=== PATIENT | female | born 1945 ===

== ENCOUNTER 2017-10-25 18:03 | Emergency (ER) | payer OTHER, MEDICARE ==
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
[2017-10-25 19:09] LABS: BASO % 0.5 % (0.0-2.0); EOS # 0.2 K/uL (0.0-0.7); EOS % 2.9 % (0.0-4.0); HEMOGLOBIN 14.4 g/dL (12.0-16.0); LYMPH # 3.5 K/uL (1.0-4.3); MEAN CELL VOLUME 95.7 fl (81.0-99.0); MEAN CORPUSCULAR HEMOGLOBIN 32.8 pg (27.0-31.0); MEAN CORPUSCULAR HGB CONC 34.2 g/dL (33.0-37.0); MEAN PLATELET VOLUME 9.4 fl (7.2-11.7); MONO # 0.5 K/uL (0.0-0.8); NEUT # 3.3 K/uL (1.8-7.0); NEUT % 43.6 % (50.0-75.0); RBC 4.4 Mil/uL (3.80-5.20); RED CELL DISTRIBUTION WIDTH 12.5 % (11.5-14.5); WHITE BLOOD COUNT 7.6 K/uL (4.8-10.8)
[2017-10-25 19:25] LABS: ALB/GLOB RATIO 1.4 (1.0-2.1); ALBUMIN 4.4 g/dL (3.5-5.0); ALT/SGPT 33 U/L (9-52); AST/SGOT 30 U/L (14-36); BLOOD UREA NITROGEN 18 mg/dl (7-17); CALCIUM 9.7 mg/dL (8.4-10.2); GFR AFRICAN-AMERICAN > 60; GFR NON-AFRICAN AMERICAN > 60
[2017-10-25] MEDS ORDERED: Sodium Chloride 0.9% 1,000 ML IV SCH (20:00)
[2017-10-25 20:51] VITALS: BP 147/79; PULSE 84; RESP 18; TEMP 97.9; O2SAT 98
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
--- NOTE | 2017-10-26 08:30 | RAD ---
HISTORY: COMPARISON: No prior. TECHNIQUE: Chest PA and lateral FINDINGS: LINES AND TUBES: None. LUNG AND PLEURA: The lungs are hyperinflated and there is peribronchial thickening with chronic changes in both lungs. No focal consolidation. No pleural effusion or pneumothorax. HEART AND MEDIASTINUM: The heart is not enlarged. The hilar and mediastinal contours are within normal limits. SKELETAL STRUCTURES: The bony structures are within normal limits for the patient's age. VISUALIZED UPPER ABDOMEN: Normal. OTHER FINDINGS: None. IMPRESSION: No acute findings. COPD.
--- NOTE | 2017-10-26 09:59 | CARD ---
APPROVED REPORT Date of service: 10/25/2017 EKG Measurement Heart [id number] <Conclusion> Normal sinus rhythm Normal ECG
== END 2017-10-25 20:53 | disposition home or self-care (01) ==
LOC: H.ER 18:03
DX: Z04.1 Encounter for examination and observation following transport accident (principal); V43.62XA Car passenger injured in collision with other type car in traffic accident, initial encounter; W22.12XA Striking against or struck by front passenger side automobile airbag, initial encounter; Y92.410 Unspecified street and highway as the place of occurrence of the external cause; R73.9 Hyperglycemia, unspecified
CPT/HCPCS: 71046; 80053; 82948; 84484; 85025; 93005; 96360; 99285; J7030

== ENCOUNTER 2018-06-20 16:49 | Emergency (ER) | payer MEDICARE, OTHER ==
[2018-06-20] MEDS ORDERED: Oxycodone/Acetaminophen 5/325 mg Tab PO ONE (17:10)
[2018-06-20] MEDS ORDERED: Mineral Oil Light Sterile 25 ml ONE (17:14)
[2018-06-20] MEDS ORDERED: Mineral Oil Light Sterile 25 ml TOP ONE (17:14)
[2018-06-20] MEDS ORDERED: Oxycodone/Acetaminophen 5/325 mg Tab ONE (17:19)
[2018-06-20] MEDS ORDERED: Tetanus/Diphtheria Toxoids 0.5 ml Syringe IM ONE ×2 (17:36→17:43)
[2018-06-20] MEDS ORDERED: Silver Sulfadiazine 1% Cream (20 gm) TOP STA (17:36)
[2018-06-20] MEDS ORDERED: Silver Sulfadiazine 1% CREAM (50 gm) ONE (17:38)
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
[2018-06-20 18:35] VITALS: BP 153/71; PULSE 78; RESP 18; TEMP 97.6
[2018-06-20 21:57] VITALS: O2SAT 100
[2018-06-21] MEDS ORDERED: Bacitracin 500 Units/gm Oint Foilpak UD TOP SCH (09:00)
== END 2018-06-20 18:33 | disposition home or self-care (01) ==
LOC: H.ER 16:49
DX: T23.201A Burn of second degree of right hand, unspecified site, initial encounter (principal); E11.9 Type 2 diabetes mellitus without complications